=== PATIENT | male | born 1985 | race African-American/Black ===

== ENCOUNTER 2019-03-31 23:43 | Emergency (ER) | payer SELFPAY ==
--- NOTE | 2019-04-01 07:47 | RAD ---
EXAM: 4 views of the right knee HISTORY: Knee pain COMPARISON: None FINDINGS: No knee effusion is seen. There is no evidence of acute fracture or dislocation. No signifi cant degenerative changes are seen. No soft tissue swelling is present. IMPRESSION: No evidence of acute osseous abnormality.
== END 2019-04-01 00:37 | disposition home or self-care (01) ==
LOC: ERS 23:43
DX: S83.91XA Sprain of unspecified site of right knee, initial encounter (principal); F41.9 Anxiety disorder, unspecified; F32.9 Major depressive disorder, single episode, unspecified; W19.XXXA Unspecified fall, initial encounter; Y93.67 Activity, basketball; Y99.8 Other external cause status